=== PATIENT | female | born 1975 | race Hispanic/Latino ===

== ENCOUNTER 2023-02-17 07:52 | Day surgery (SDC) | payer MEDICARE, MEDICAID ==
[~2023-02-17] VITALS: Ht 157.5 cm; Wt 89.8 kg
[~2023-02-17 07:52] MED LIST: ATORVASTATIN CA10 MG PO; LISINOPRIL5 MG PO; METFORMIN500 M2 PO; VITAMIN D1000 UNIT PO
[2023-02-17 08:26] LABS: HCG SERUM/URINE (NEG/POS) NEGATIVE (NEGATIVE)
[2023-02-17 10:39] VITALS: BP 173/101
== END 2023-02-17 10:11 | disposition home or self-care (01) ==
LOC: ORM 07:52
PROVIDERS: ATTEND Physical Medicine & Rehabilitation
DX: M53.3 Sacrococcygeal disorders, not elsewhere classified (principal); G89.4 Chronic pain syndrome
CPT/HCPCS: G0260; Q9966